=== PATIENT | female | born 1965 | race Caucasian/White ===

== ENCOUNTER → 2018-09-19 11:06 | Outpatient (CLI) | payer BC, SELFPAY ==
--- NOTE | 2018-09-19 11:19 | XR_ITS ---
XR chest 2V HISTORY: ITS.REASON: CHEST PRESSURE,WEAKNESS,FATIGUE ORDERING PHYSICIAN: Chrissie Goodwin APRN PATIENT AGE: 53 years COMPARISON: None FINDINGS: The cardiomediastinal silhouette and pulmonary vascularity are within normal limits. The lungs are clear without infiltrates, suspicious nodules, or pleural effusions. Calcified granuloma is present in the right lung base No acute bony abnormalities. IMPRESSION: No acute finding
[2018-09-19 11:40] LABS: Basophils # 0.1 K/mm3 (0-0.2); Eosinophils # 0.2 K/mm3 (0.0-0.4); Eosinophils % 2.7 % (0.1-12.0); Hematocrit 39.8 % (37.0-47.0); Lymphocytes # 2.3 K/mm3 (0.7-4.5); Lymphocytes % 33.6 % (10-50); Mean Corpuscular HGB Conc 32.6 g/dL (31.8-35.4); Mean Corpuscular Hemoglobin 28.6 pg (27.0-31.2); Mean Corpuscular Volume 87.8 fl (81-99); Mean Platelet Volume 7.2 fl (7.4-10.4); Monocytes # 0.4 K/mm3 (0.1-1.0); Monocytes % 5.4 % (1.7-9.3); Neutrophils % 57.3 % (37.0-80.0); Platelet Count 353 K/mm3 (142-424); Red Blood Count 4.53 M/mm3 (4.20-5.40); White Blood Count 6.9 K/mm3 (4.8-10.8)
[2018-09-19 12:23] LABS: Erythrocyte Sedimentation Rate 30 mm/hr (0-30)
[2018-09-19 13:02] LABS: Troponin I < 0.02 ng/ml (0.00-0.06)
[2018-09-19 13:17] LABS: Hemoglobin A1C 6.2 % (0.0-7.0)
[2018-09-19 13:29] LABS: Chol/HDL Ratio 3.1 (1-3.5); Cholesterol 202 mg/dL (140-200); Ferritin 12 ng/mL (8-388); Free T4 (Free Thyroxine) 0.82 ng/dl (0.76-1.46); HDL Cholesterol 66 mg/dL (29-89); LDL Cholesterol 115 mg/dL (0-130); Thyroid Stimulating Hormone 2.21 uIU/ml (0.358-3.740); Triglycerides 104 mg/dL (30-200); VLDL Cholesterol 21 mg/dL (0-40)
[2018-09-20 10:13] LABS: Folate >20.0 ng/mL (>3.0); Vitamin B12 280 pg/mL (232-1245); Vitamin D 25 Hydroxy 61.2 ng/mL (30.0-100.0)
[2018-09-20 11:12] LABS: Anti-Centromere B Antibodies <0.2 AI (0.0-0.9); Anti-Jo-1 <0.2 AI (0.0-0.9); Anti-Smith Antibody <0.2 AI (0.0-0.9); Antichromatin Antibodies <0.2 AI (0.0-0.9); Antiscleroderma-70 Antibodies <0.2 AI (0.0-0.9); RNP Antibodies 0.4 AI (0.0-0.9); Sjogren's Anti-SS-A <0.2 AI (0.0-0.9); Sjogren's Anti-SS-B <0.2 AI (0.0-0.9)
[2018-09-20 13:50] LABS: Anti-DNA (DS) Ab Qn 1 IU/mL (0-9)
== END ==
PROVIDERS: PCP Family Medicine; Visit Provider Nurse Practitioner
DX: R07.89 Other chest pain (principal); R53.1 Weakness; R53.83 Other fatigue
CPT/HCPCS: 36415; 71046; 80061; 82607; 82652; 82728; 82746; 83036; 83880; 84439; 84443; 84484; 85025; 85651; 86141; 86225; 86235

== ENCOUNTER → 2018-12-13 11:07 | Outpatient (CLI) | payer BC, SELFPAY ==
--- NOTE | 2018-12-13 11:17 | XR_ITS ---
XR chest 2V HISTORY: ORDERING PHYSICIAN: Alejandrina Larsen APRN PATIENT AGE: 53 years COMPARISON: 09/19/2018. FINDINGS: The cardiomediastinal silhouette and pulmonary vascularity are within normal limits. There are stable benign right lung base calcified granuloma and 8 punctate calcific granuloma in the right midlung which appear stable. These are benign. Lung leon are otherwise clear.. No acute bony abnormalities. IMPRESSION: No change and no acute process.
== END ==
PROVIDERS: PCP Nurse Practitioner Family; Visit Provider Nurse Practitioner Family
DX: R06.02 Shortness of breath (principal)
CPT/HCPCS: 71046

== ENCOUNTER → 2019-01-24 10:23 | Outpatient (CLI) | payer BC, SELFPAY ==
[2019-01-24 11:09] LABS: Basophils # 0.1 K/mm3 (0-0.2); Eosinophils # 0.2 K/mm3 (0.0-0.4); Hematocrit 38.7 % (37.0-47.0); Hemoglobin 12.1 g/dL (12.2-16.2); Lymphocytes # 2.3 K/mm3 (0.7-4.5); Lymphocytes % 30.1 % (10-50); Mean Corpuscular HGB Conc 31.2 g/dL (31.8-35.4); Mean Corpuscular Hemoglobin 26.4 pg (27.0-31.2); Mean Corpuscular Volume 84.4 fl (81-99); Mean Platelet Volume 6.9 fl (7.4-10.4); Monocytes # 0.6 K/mm3 (0.1-1.0); Monocytes % 8.2 % (1.7-9.3); Neutrophils # 4.5 K/mm3 (1.8-7.8); Neutrophils % 57.8 % (37.0-80.0); Platelet Count 392 K/mm3 (142-424); Red Blood Count 4.58 M/mm3 (4.20-5.40); Red Cell Distribution Width 13.9 % (11.5-17.5); White Blood Count 7.7 K/mm3 (4.8-10.8)
[2019-01-24 12:00] LABS: HCG Qualitative, Serum Negative (Negative)
[2019-01-24 12:50] LABS: Anion Gap 14.8 mEq/L (5-15); Blood Urea Nitrogen 12 mg/dL (7-18); Calcium 9.5 mg/dL (8.5-10.1); Carbon Dioxide 27 mmol/L (21.0-32.0); Chloride 104 mmol/L (98-107); Creatinine,Serum 0.95 mg/dL (0.55-1.02); Estimated Glomerular Filt Rate 61 ml/min (>60); GFR (African American) 74 ML/MIN (>60); Glucose 86 mg/dL (74-106); Potassium 4.8 mmoL/L (3.5-5.1); Sodium 141 mmol/L (136-145)
== END ==
PROVIDERS: Visit Provider Obstetrics & Gynecology
DX: N92.0 Excessive and frequent menstruation with regular cycle (principal); N95.0 Postmenopausal bleeding
CPT/HCPCS: 36415; 80048; 84703; 85025

== ENCOUNTER → 2019-08-07 13:58 | Outpatient (POV) | payer BC, SELFPAY | PROVIDERS: PCP Specialist; Visit Provider Specialist | DX: R20.8 Other disturbances of skin sensation (principal); M79.672 Pain in left foot; M79.671 Pain in right foot | CPT/HCPCS: 95886; 95909 ==

== ENCOUNTER → 2019-08-18 07:45 | Outpatient (CLI) | payer BC, SELFPAY ==
--- NOTE | 2019-08-18 07:52 | US_ITS ---
PROCEDURE: US LIVER CLINICAL INDICATION: ELAVATED ALKALINE PHOSPHATE LEVELS The COMPARISON: No exams were available for comparison FINDINGS: PANCREAS: Unremarkable. No obvious mass or abnormal fluid collection. No ductal dilatation LIVER: No focal liver lesions demonstrated. Homogeneous echogenicity. No intrahepatic biliary ductal dilatation evident. There is appropriate direction of blood flow within a non dilated portal vein. There is slight increased echogenicity of the liver suggesting fatty liver. RIGHT KIDNEY: Unremarkable. Normal size and echogenicity. No hydronephrosis GALLBLADDER: No gallstones, gallbladder wall thickening, pericholecystic fluid, or biliary dilatation. IMPRESSION: 1. Unremarkable gallbladder ultrasound. 2. Mild hepatic steatosis Dictated by: Chandu Power MD 08/18/2019 08:54 Electronically signed by Chandu Power MD in [place] 08/18/2019 08:54
== END ==
PROVIDERS: PCP Specialist; Visit Provider Family Medicine
DX: R74.8 Abnormal levels of other serum enzymes (principal)
CPT/HCPCS: 76705

== ENCOUNTER → 2020-01-23 14:45 | Outpatient (CLI) | payer BC, SELFPAY ==
--- NOTE | 2020-01-23 14:51 | XR_ITS ---
PROCEDURE: XR FOOT WT BEARING RT 3V CLINICAL INDICATION: pain COMPARISON: No exams were available for comparison FINDINGS: No fracture or dislocation. No lytic or blastic change. There is normal mineralization. The joint spaces are well-preserved. No significant degenerative/arthritic changes. No erosive changes evident. Other findings:None. IMPRESSION: No acute findings. Dictated by: Chandu Power MD 01/23/2020 15:14 Chandu Power MD in [place] 01/23/2020 15:14
--- NOTE | 2020-01-23 14:51 | XR_ITS ---
PROCEDURE: XR FOOT WT BEARING LT 3V CLINICAL INDICATION: pain COMPARISON: No exams were available for comparison FINDINGS: No fracture or dislocation. No lytic or blastic change. There is normal mineralization. The joint spaces are well-preserved. No significant degenerative/arthritic changes. No erosive changes evident. Other findings:None. IMPRESSION: No acute findings. Dictated by: Chandu Power MD 01/23/2020 15:15 Chandu Power MD in [place] 01/23/2020 15:15
--- NOTE | 2020-01-23 14:51 | XR_ITS ---
PROCEDURE: XR ANKLE WT BEARING LT MIN 3V CLINICAL INDICATION: pain COMPARISON: No exams were available for comparison FINDINGS: No fracture or dislocation. No lytic or blastic change. There is normal mineralization. The joint spaces are well-preserved. No significant degenerative/arthritic changes. No erosive changes evident. Other findings:None. IMPRESSION: No acute findings. Dictated by: Chandu Power MD 01/23/2020 15:14 Chandu Power MD in [place] 01/23/2020 15:14
--- NOTE | 2020-01-23 14:51 | XR_ITS ---
PROCEDURE: XR ANKLE WT BEARING RT MIN 3V CLINICAL INDICATION: pain COMPARISON: No exams were available for comparison FINDINGS: No fracture or dislocation. No lytic or blastic change. There is normal mineralization. The joint spaces are well-preserved. No significant degenerative/arthritic changes. No erosive changes evident. Other findings:None. IMPRESSION: No acute findings. Dictated by: Chandu Power MD 01/23/2020 15:13 Chandu Power MD in [place] 01/23/2020 15:13
== END ==
PROVIDERS: PCP Nurse Practitioner Family; Visit Provider Podiatrist
DX: M25.572 Pain in left ankle and joints of left foot (principal); M25.571 Pain in right ankle and joints of right foot; M79.672 Pain in left foot; M79.671 Pain in right foot
CPT/HCPCS: 73610; 73630

== ENCOUNTER → 2020-06-15 10:43 | Outpatient (CLI) | payer BC, SELFPAY ==
[2020-06-15 12:21] LABS: Coronavirus 19 IgG Antibody Negative (Negative); Coronavirus 19 IgM Antibody Negative (Negative)
== END ==
PROVIDERS: Visit Provider Internal Medicine Gastroenterology
DX: Z01.812 Encounter for preprocedural laboratory examination (principal); Z20.822 Contact with and (suspected) exposure to COVID-19; Z12.11 Encounter for screening for malignant neoplasm of colon; Z86.010 Personal history of colon polyps
CPT/HCPCS: 36415; 86328

== ENCOUNTER 2020-06-17 07:48 | Day surgery (SDC) | payer BC, SELFPAY ==
[2020-06-11 09:55] VITALS: BMI 37.3
[2020-06-17] VITALS (7 sets, daily range): BP systolic 118–138; BP diastolic 64–81; PULSE 65–76; RESP 16–18; TEMP 36.3–36.4; O2SAT 90–97
--- NOTE | 2020-06-17 08:43 | P.PN_ITS ---
[facility] Anesthesia Checklist - Patient Identification Patient Identification: Arm Band - Structural Data Admitted From: Home Planned Operative Procedure/s: colonoscopy Consent for Planned Operative Procedure(s) Verified: Yes Verified Documents: Surgical Consent, History and Physical - NPO Status Verified Time NPO: 00:00 - Additional verifications Anesthesia Reactions: No Hx Blood Transfusions: No Blood Transfusion Reaction: No - Airway Assessment C-Spine Mobility Assessed: Yes (mp2) TMJ Mobility Assessed: Yes Dentition: Good Dentition - Neurological Assessment Level of Consciousness: Awake, Alert - Anesthesia Plan Anesthesia Risk discussed: Yes Anesthesia Plan: Verified ASA Class: III Anesthesia Type: MAC [facility] History I have reviewed the patient's past medical history: Yes Medical History: Reports:: Anxiety, Gastroesophageal Reflux Disease(GERD), Hyperlipidemia, Hypertension, Renal Disease, Tuberculosis Denies:: Cancer, Diabetes Mellitus Type 1, Diabetes Mellitus Type 2, Internal Pacemaker, MRSA, Seizures *Have you ever received a pneumonia vaccine?: No *Have you received a flu vaccine this season?: Yes Other Medical History: Reports: Arthritis, Other. Denies: Blood Transfusion Reaction Anesthesia experience/problems:: nac Other Surgeries: Yes: Colonoscopy, Sinus Surgery. No: Pacemaker Amputation: No Fractures: Yes (right shoulder) - *Social History Last grade of school completed: High school graduate Smoking Status: Never smoker Alcohol Intake: never Substance Use Type: denies use *Occupational Status:: employed Housing: house Household Members: spouse *Travel in the last 8 weeks: None - Psychiatric History Pschychiatric History:: Reports:: Anxiety Family Hx:: Cancer, Hyperlipidemia, Hypertension
--- NOTE | 2020-06-17 09:07 | HMH.PROC ---
[facility] Procedure Note Procedure Note:: Colonoscopy Procedure Report: Colonoscopy with cold snare polypectomy Endoscopist: Jean Moreno II, MD Referring physician: Emmanuelle MARSH Date of Procedure: June 17, 2020 Equipment: Olympus 180 variable stiffness pediatric colonoscope Sedation: MAC sedation Indication: Mrs. Gamble is a 55-year-old female who is here for follow-up high risk screening/surveillance colonoscopy due to a strong family history of colon cancer. Her sister had colon cancer initially diagnosed in her late 50s. The patient did have a colonoscopy in February 2015 and had 4 colon polyps (serrated adenomas x4) removed. The patient reports no abdominal pain, weight loss, change in her bowel habits or rectal bleeding. Procedure: Prior to the procedure, a history and physical exam was performed, and patient's medications and allergies were reviewed. The risks, benefits and alternatives of the sedation and procedure were discussed with the patient. All questions were answered and informed consent was obtained. The patient was brought to the procedure room. Patient identification and proposed procedure were verified by the physician and the nurse. The patient was placed in a left lateral decubitus position and the scope was passed under direct vision. Throughout the procedure, the patient's blood pressure, pulse, and oxygen saturations were monitored continuously. The colonoscopy was accomplished without difficulty. The patient tolerated the procedure well. Findings: On digital rectal examination there was normal rectal tone. There were no external hemorrhoids. The colonoscope was introduced through the anal canal to the rectum and advanced to the cecum. The ileocecal valve and appendiceal orifice were identified. The scope was advanced a short distance into the ileum which appeared grossly normal. The scope was then withdrawn into the colon. There were 2 colon polyps (cecum x1 (7 mm) and sigmoid x1 (5 mm)) which were removed via cold snare polypectomy. The remaining cecum, ascending, transverse, descending, sigmoid and rectum were grossly normal. There were no other mucosal abnormalities identified. Upon retroflexion within the rectum there were grade 1 internal hemorrhoids.The preparation was excellent throughout with [place] Preparation Score of 9. The cecal time was 12 minutes. Impression: 1. Colonic polyps x2 2. Grade 1 internal hemorrhoids Plan: I will follow up the polyp pathology and recommend repeat colonoscopy again in 5 years based upon the patient's family history, prior adenomatous polyps and present polyp histology. I would encourage fiber supplementation on a long-term daily maintenance basis.
== END 2020-06-17 10:10 | disposition home or self-care (01) ==
LOC: OUTP 07:50
PROVIDERS: PCP Nurse Practitioner; Visit Provider Internal Medicine Gastroenterology
PROC: 0DJD8ZZ Inspection of Lower Intestinal Tract, Via Natural or Artificial Opening Endoscopic (ICD-10-PCS; CPT 45378; principal; 2020-06-17 09:00)
DX: Z12.11 Encounter for screening for malignant neoplasm of colon (principal); Z80.0 Family history of malignant neoplasm of digestive organs; Z86.010 Personal history of colon polyps; K63.5 Polyp of colon; K64.0 First degree hemorrhoids; E78.5 Hyperlipidemia, unspecified; I10 Essential (primary) hypertension; N28.9 Disorder of kidney and ureter, unspecified; K21.9 Gastro-esophageal reflux disease without esophagitis; F41.9 Anxiety disorder, unspecified; Z86.11 Personal history of tuberculosis; M19.90 Unspecified osteoarthritis, unspecified site
CPT/HCPCS: 45385

== ENCOUNTER → 2021-03-11 13:03 | Outpatient (POV) | payer BC, SELFPAY | PROVIDERS: Visit Provider Dermatology | DX: Z00.00 Encounter for general adult medical examination without abnormal findings (principal) ==

== ENCOUNTER → 2021-05-27 16:02 | Outpatient (CLI) | payer BC, SELFPAY ==
[2021-05-27 17:18] LABS: Basophils # 0.1 K/mm3 (0-0.2); Basophils % 1.9 % (0.1-2.0); Eosinophils # 0.3 K/mm3 (0.0-0.4); Eosinophils % 3.5 % (0.1-12.0); Hemoglobin 13.1 g/dL (12.2-16.2); Lymphocytes # 3.1 K/mm3 (0.7-4.5); Lymphocytes % 40.6 % (10-50); Mean Corpuscular Hemoglobin 27.8 pg (27.0-31.2); Mean Corpuscular Volume 86.9 fl (81-99); Monocytes # 0.7 K/mm3 (0.1-1.0); Monocytes % 9.2 % (1.7-9.3); Neutrophils # 3.4 K/mm3 (1.8-7.8); Neutrophils % 44.8 % (37.0-80.0); Platelet Count 375 K/mm3 (142-424); Red Blood Count 4.72 M/mm3 (4.20-5.40); Red Cell Distribution Width 14.7 % (11.5-17.5); White Blood Count 7.6 K/mm3 (4.8-10.8)
[2021-05-27 17:26] LABS: Alanine Aminotransferase 28 U/L (12-78); Albumin Level 4.5 g/dl (3.5-5.0); Albumin/Globulin Ratio 1.7 (1.1-1.8); Alkaline Phosphatase 124 U/L (38-126); Aspartate Amino Transferase 33 U/L (14-36); Bilirubin,Total 0.3 mg/dl (0.2-1.3); Blood Urea Nitrogen 13 mg/dl (7-17); Carbon Dioxide 27 mmol/L (22.0-30.0); Chloride 102 mmol/L (98-107); Estimated Glomerular Filt Rate 65 ml/min (>60); GFR (African American) 78 ML/MIN (>60); Globulin 2.7 g/dL (1.3-3.2); Glucose 79 mg/dl (74-100); Sodium 137 mmol/L (136-145); Total Protein,Serum 7.2 g/dl (6.3-8.2); Uric Acid 6.3 mg/dl (2.5-6.2)
[2021-05-27 17:32] LABS: C-Reactive Protein 5.1 mg/L (0-4)
[2021-05-27 17:58] LABS: Thyroid Stimulating Hormone 2.15 uIU/mL (0.465-4.68)
[2021-05-27 18:21] LABS: Erythrocyte Sedimentation Rate 26 mm/hr (0-30)
[2021-05-27 18:33] LABS: Vitamin B12 404 pg/mL (239-931)
[2021-05-29 11:17] LABS: RA Latex Turbid. <10.0 IU/mL (<14.0)
[2021-05-29 20:12] LABS: Antinuclear Antibodies, IFA Negative (.)
[2021-06-03 09:32] LABS: 1,25 Dihydroxy Vitamin D 44 pg/mL (.); 1,25-Dihydroxy, Vitamin D-2 <10 pg/mL (.); 1,25-Dihydroxy, Vitamin D-3 43 pg/mL (.)
== END ==
PROVIDERS: Visit Provider Podiatrist
DX: M79.672 Pain in left foot (principal); M79.671 Pain in right foot; G60.9 Hereditary and idiopathic neuropathy, unspecified; R20.2 Paresthesia of skin; R20.8 Other disturbances of skin sensation; E66.9 Obesity, unspecified; Z68.37 Body mass index [BMI] 37.0-37.9, adult
CPT/HCPCS: 80053; 82607; 82652; 82746; 84443; 84550; 85025; 85651; 86038; 86140; 86431

== ENCOUNTER → 2021-11-17 10:57 | Outpatient (CLI) | payer BC, SELFPAY ==
--- NOTE | 2021-11-17 11:05 | MR_ITS ---
FINAL REPORT CLINICAL HISTORY: back pain, n/t cindy feet, muscle weakness. BURNING SENSATION BILATERAL FEET. TIGHTNESS IN LOW BACK FINDINGS: Multiplanar MR imaging of the lumbar spine was performed without contrast. On the sagittal T2-weighted images, disc degeneration is seen at multiple levels. The vertebral alignment is normal. There is no evidence of fracture. No bony mass is identified. The conus has an unremarkable appearance. No significant canal stenosis is identified. T11-12: An annular bulge is present. T12-L1: There is no significant canal stenosis or neural foraminal narrowing. L1-2: An annular bulge is present. There is no significant canal stenosis or neural foraminal narrowing. L2-3: An annular bulge is present. There is no significant canal stenosis or neural foraminal narrowing. L3-4: An annular bulge is present. There is a left foraminal disc protrusion. There is mild left neural foraminal narrowing. L4-5: There is an annular disc bulge with facet arthropathy. There is mild bilateral neural foraminal narrowing. L5-S1: There is an annular disc bulge with facet arthropathy. There is mild left neural foraminal narrowing. IMPRESSION: Multilevel degenerative disc disease and spondylosis with areas of neural foraminal narrowing as described. Left foraminal disc protrusion at L3-L4. Reviewed, Interpreted and Dictated by Ubaldo Edmond III, MD Transcribed by Sulema Patel Authenticated and . [facility]
--- NOTE | 2021-11-17 11:52 | XR_ITS ---
FINAL REPORT CLINICAL HISTORY: back pain, brisk DTrs, bilateral foot pain, n/t FINDINGS: LUMBAR SPINE Six views were obtained. There is no acute fracture. There is no malalignment. There is mild degenerative change with multilevel osteophytes. There is facet arthropathy the lower lumbar spine. There are mild vascular calcifications. There is no abnormal movement with flexion extension. IMPRESSION: Mild degenerative change. Reviewed, Interpreted and Dictated by Ubaldo Edmond III, MD Transcribed by Sulema Patel Authenticated and [facility]
[2021-11-17 12:44] LABS: Creatine Kinase 81 U/L (30-135)
[2021-11-18 13:12] LABS: Aldolase 4.2 U/L (3.3-10.3)
[2021-11-19 03:37] LABS: Zinc 68 ug/dL (44-115)
[2021-11-20 10:08] LABS: Arsenic, Blood 2 ug/L (0-9); Lead, Blood <1 ug/dL (0-4); Mercury, Blood <1.0 ug/L (0.0-14.9)
== END ==
PROVIDERS: PCP Nurse Practitioner Family; Visit Provider Nurse Practitioner Family
DX: M54.50 Low back pain, unspecified (principal); G89.29 Other chronic pain; M62.81 Muscle weakness (generalized); R20.0 Anesthesia of skin; R20.2 Paresthesia of skin; R20.8 Other disturbances of skin sensation; R29.2 Abnormal reflex; G47.33 Obstructive sleep apnea (adult) (pediatric); R53.83 Other fatigue
CPT/HCPCS: 36415; 72114; 72148; 76376; 82085; 82175; 82525; 82550; 83655; 83825; 84630

== ENCOUNTER → 2023-02-04 10:27 | Outpatient (CLI) | payer BC, SELFPAY ==
--- NOTE | 2023-02-04 10:32 | US_ITS ---
FINAL REPORT CLINICAL HISTORY: ABD PAIN,NAUSEA COMPARISON: None FINDINGS: Sonographic images of the abdomen were obtained. There is fatty infiltration of the liver. The gallbladder has an unremarkable appearance without evidence of gallstones. The common hepatic duct is not visualized but there is no evidence of biliary ductal dilatation. The pancreas is partially obscured. The spleen size is normal. The right kidney measures 11.3 cm in length. The left kidney measures 11.3 cm in length. There is normal renal echogenicity. There is no evidence of hydronephrosis. The aorta has an unremarkable appearance. Limited images of the inferior vena cava are unremarkable. IMPRESSION: Fatty liver. Reviewed, Interpreted and Dictated by Ubaldo Edmond III, MD Transcribed by Julia Kang Authenticated and . [facility]
== END ==
PROVIDERS: PCP Family Medicine; Visit Provider Nurse Practitioner
DX: R10.9 Unspecified abdominal pain (principal); R11.0 Nausea
CPT/HCPCS: 76700

== ENCOUNTER → 2023-03-09 10:02 | Outpatient (CLI) | payer BC, SELFPAY ==
--- NOTE | 2023-03-09 10:08 | NM_ITS ---
FINAL REPORT CLINICAL HISTORY: ABD PAIN COMPARISON: None FINDINGS: Sequential anterior projection images of the abdomen were obtained after the intravenous injection of 8.23 mCi technetium 99m Choletec. There is normal uptake of radiotracer by the liver. The bile ducts and bowel are visualized by 10 minutes. Gallbladder activity is seen by 15 minutes. After 1 hour, 2.3 ?g of CCK was injected intravenously for calculation of gallbladder ejection fraction. The gallbladder ejection fraction is 91 %, which is within normal limits. IMPRESSION: No evidence of cystic duct or bile duct obstruction. Normal gallbladder ejection fraction of 91 %. Reviewed, Interpreted and Dictated by Ubaldo Edmond III, MD Transcribed by Julia Kang Authenticated and [facility]
== END ==
PROVIDERS: PCP Family Medicine; Visit Provider Nurse Practitioner
DX: R10.9 Unspecified abdominal pain (principal)
CPT/HCPCS: 78227; A9537; J2805